=== PATIENT | female | born 1975 | race Caucasian/White ===

== ENCOUNTER 2019-08-04 13:13 | Outpatient (CLI) | payer OTHER, SELFPAY ==
[2019-08-04 14:00] LABS: Blood Urea Nitrogen 8 mg/dL (7-17); Calcium 8.8 mg/dL (8.4-10.2); Carbon Dioxide 26 mmol/L (22-30); Chloride 104 mmol/L (98-107); Estimated Glomerular Filt Rate > 60; Glucose 150 mg/dL (65-105); Potassium 3.8 mmol/L (3.4-5.0); Sodium 139 mmol/L (137-145)
== END 2019-08-04 13:14 | disposition home or self-care (01) ==
LOC: ANHSURGERY 13:22
PROVIDERS: Anesthesiology; Visit Provider Plastic Surgery
DX: E11.9 Type 2 diabetes mellitus without complications (principal); Z01.812 Encounter for preprocedural laboratory examination
CPT/HCPCS: 36415; 80048

== ENCOUNTER 2019-08-14 01:46 | Day surgery (SDC) | payer OTHER, SELFPAY ==
[2019-07-30 13:10] VITALS: BMI 56.5
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
[2019-08-14] VITALS (11 sets, daily range): BP systolic 95–130; BP diastolic 51–80; PULSE 73–82; RESP 12–25; TEMP 37.1–37.2; O2SAT 95–99
--- NOTE | ~2019-08-14 | XR_ITS ---
XR surgery orthopedic DATE: 08/14/2019 09:23 INDICATION: Left thumb arthroplasty TECHNIQUE: 38 seconds total fluoroscopy exposure time 4.5871 total DAP (cGy*cm2) 3 spot C-arm exposures of the wrist COMPARISON: None FINDINGS: There is surgical excision of the trapezium bone. Small calcific or bony densities overlying the distal lateral carpal area. IMPRESSION: Surgical excision of trapezium Reviewed, dictated and finalized at [facility]. Reviewed, dictated and finalized at [facility].
--- NOTE | 2019-08-14 06:41 | WPDANESEPPF ---
Anes - Initial Pre Proc Eval Procedure: Operation Date: 08/14/19 07:30 Proposed Procedures p Left Trapezium Resection Arthroplasty With Arthrex Internal Brace - Chon Curry MD Date/Time: 08/14/19 06:41 Surgeon: Chon Curry MD Pre Op Diagnosis: Left First CMC Joint OA Patient Data Age: 43 Gender: F Height: 5 ft 5 in Weight: 155.7 kg Allergies Allergy/AdvReac Type Severity Reaction Status Date / Time Penicillins Allergy Severe Anaphylactic Verified 08/14/19 06:37 Shock Home Medications Medication Instructions Recorded Confirmed Type acetaminophen [Tylenol] 325 mg PO DIRECTED PRN 07/30/19 07/30/19 History albuterol sulfate [ProAir HFA] 2 puff INHALATION QID PRN 07/30/19 07/30/19 History fluoxetine [Prozac] 80 mg PO QPM 07/30/19 07/30/19 History gabapentin 1,200 mg PO QAM 07/30/19 07/30/19 History gabapentin 1,600 mg PO HS 07/30/19 07/30/19 History lisinopril 20 mg PO QPM 07/30/19 07/30/19 History loratadine 10 mg PO DAILY 07/30/19 07/30/19 History metformin 1,000 mg PO DAILY 07/30/19 07/30/19 History montelukast [Singulair] 20 mg PO DAILY 07/30/19 07/30/19 History pantoprazole 20 mg PO QAM 07/30/19 07/30/19 History Patient hx anesthesia problems: post op nausea/vomiting Family hx anesthesia problems: none PMFSH Past Medical History Medical History Anxiety Asthma GERD (gastroesophageal reflux disease) Hypertension Anes - Eval Final PreProcedure Day of Procedure 08/14/19 06:41 Patient weight: super morbidly obese Heart: regular rate and rhythm Lungs: clear to auscultation Airway: Mallampati scale class II Neurological: alert and oriented Last oral intake: >/= 8 hours ASA classification: III Emergent: no Anesthetic plan: proceed Anesthesia type and monitoring: general LMA and standard monitoring Informed Consent: The patient's anesthetic plan and its attendant risks and benefits were discussed with the patient/family/POA. Questions were solicited and answers provided to the satisfaction of the patient/family/POA.
[2019-08-14] MEDS: LACTATED RINGERS 1,000 ML 30 ML IV CONT ×2 (06:50→09:39)
[2019-08-14] MEDS: SCOPOLAMINE 1.5 MG PATCH TRANSDERM (06:56)
[2019-08-14 07:14] LABS: Glucose Point of Care 143 (65-105)
--- NOTE | 2019-08-14 07:20 | WPDHPUPDATE1 ---
History and Physical Update Update Date/Time: 08/14/19 07:20 History and Physical has been reviewed, including an updated exam of the patient. There are NO changes in the patient's condition. Risks, benefits, and alternatives have been discussed and questions answered. Patient agrees to proceed with procedure.
[2019-08-14] MEDS: BUPIVACAINE/EPINEPHRINE 0.5% 10 ML VIAL 6 ML INFILTRATE (07:42)
--- NOTE | 2019-08-14 09:07 | SUR.OPER ---
INFORMED DR. LEYVA OF 60 MINUTE TOURNIQUET TIME
[2019-08-14] MEDS: KETOROLAC 30 MG/ML VIAL (*BKC) IM (09:15)
[2019-08-14] MEDS: BACITRACIN OINTMENT 15 GM TUBE 1 APPLIC TOPICAL (09:17)
[2019-08-14] MEDS: LIDO 1%/EPINEPHRINE 1:100,000 20 ML VIAL 7 ML INFILTRATE (09:19)
--- NOTE | 2019-08-14 09:43 | PM.OP ---
Procedure Note - Brief Procedure Note - Brief Date of procedure: 08/14/19 Pre-op diagnosis: Left First CMC Joint OA Post-op diagnosis: same Procedure performed: Left trapezium resection arthroplasty with InternalBrace Implants: InternalBrace Anesthesia: EDUARDAA Surgeon: Chon Curry MD [employer] Clerk: Chuyita Estimated blood loss (mL): 5 Tourniquet time (min): 88 Drains: No Packing: No Pathology: none sent Complications: No immediate complications Condition: stable Disposition: PACU
[2019-08-14 09:52] LABS: Glucose Point of Care 170 (65-105)
--- NOTE | 2019-08-14 10:12 | P.OP_ITS ---
Procedure Note - Detailed Date of procedure: 08/14/19 Pre-op diagnosis: Left First CMC Joint OA Post-op diagnosis: same Description of procedure: The patient's left hand was marked in the holding area. She was taken to the operating room and placed supine on the operating table. A time-out was held and confirmed. She was given general endotracheal anesthesia. The extremity was prepped and draped in usual fashion. The existing scar was marked for incision. This area was infiltrated with 1% lidocaine with epinephrine. The tourniquet was inflated to 250 mmHg. The incision was made as marked and dissection was carried carefully through the subcutaneous tissue to identify and branches of the superficial radial nerve. Also the extensor pollicis longus and extensor pollicis brevis and abductor pollicis. We accessed the capsule between the extensors. The dissection was carried to the base of the metacarpal. This was dissected subperiosteally and extended onto the trapezium.. The trapezium was dissected the around its periphery with multiple different instruments to free it. It was finally removed piecemeal with a rongeur after dividing it with an osteotome. The complete removal was accomplished and the C-arm image was made to confirm that. The base of the 2nd metacarpal was identified after placing Arthrex K-wire to that point and obtaining C-arm images. The Arthrex internal brace kit was utilized to fenestrate the radial base of the 2nd metacarpal the Arthrex anchor with brace attached was inserted after overdrilling the hole.. A similar procedure was then carried out on the radial aspect of the base of the 1st metacarpal. The internal brace was tightened as the thumb was held in AD duction. Again C-arm images were obtained with the thumb in adduction and abduction confirming the satisfactory position of the 1st metacarpal. During this procedure previously placed Arthrex anchors and suture were identified and removed. Placement of today's anchors was not impeded by having placed previous anchors. The capsule was repaired with 3-0 Vicryl. The skin was closed with running 4-0 intradermal Vicryl. 7 milliliter of 0.5% Marcaine with epinephrine were instilled in the region of the surgery. The total tourniquet time was 88 minutes. The patient had received 900 mg of clindamycin preop. The thumb and wrist were dressed as usual with a soft dressing and a short thumb spica splint to be used temporarily. She was discharged from the operating room in stable condition. A prescription for Percocet 5/325 12 was placed. Implants: Left trapeium resection arthroplasty with Arthrex InternalBrace. Anesthesia: [facility] Surgeon: Chon Curry MD
[2019-08-14] MEDS: HYDROMORPHONE HCL 1 MG/ML INJ 0.5 MG IV PUSH ×4 (10:30→10:56)
== END 2019-08-14 12:34 | disposition home or self-care (01) ==
PROVIDERS: Visit Provider Plastic Surgery
PROC: (CPT 25447; principal; 2019-08-14 07:30)
DX: M18.12 Unilateral primary osteoarthritis of first carpometacarpal joint, left hand (principal); Z87.828 Personal history of other (healed) physical injury and trauma; I10 Essential (primary) hypertension; J45.909 Unspecified asthma, uncomplicated; K21.9 Gastro-esophageal reflux disease without esophagitis; F41.9 Anxiety disorder, unspecified; E66.01 Morbid (severe) obesity due to excess calories; Z68.43 Body mass index [BMI] 50.0-59.9, adult; Z79.84 Long term (current) use of oral hypoglycemic drugs
CPT/HCPCS: 25447; A9270; J1100; J1170; J1885; J2250; J2405; J2704; J3010; J7120